=== PATIENT | female | born 1975 | race African-American/Black ===

== ENCOUNTER 2021-04-04 18:28 | Emergency (ER) | payer BC, OTHER ==
[~2021-04-04] VITALS: Ht 167.6 cm; Wt 77.1 kg
[2021-04-04] MEDS ORDERED: cloNIDine HCL 0.1 MG TAB PO ONE (19:00)
[2021-04-04 20:09] VITALS: BP 168/84
== END 2021-04-04 21:12 | disposition home or self-care (01) ==
LOC: ER 18:28
DX: I16.0 Hypertensive urgency (principal)